=== PATIENT | female | born 1985 | race Caucasian/White ===

== ENCOUNTER 2021-10-30 08:50 | Emergency (ER) | payer SELFPAY ==
[~2021-10-30] VITALS: Ht 152.4 cm; Wt 54.5 kg
[2021-10-30 08:58] VITALS: BP 130/75
[2021-10-30] MEDS ORDERED: ALPR2TAB3 PO (09:03)
[2021-10-30] MEDS ORDERED: ALPR1TAB3 PO (09:36)
== END 2021-10-30 09:50 | disposition home or self-care (01) ==
LOC: M ED 08:50
DX: Z76.0 Encounter for issue of repeat prescription (principal); F41.8 Other specified anxiety disorders; F33.9 Major depressive disorder, recurrent, unspecified

== ENCOUNTER 2021-10-31 03:31 | Emergency (ER) | payer SELFPAY ==
[~2021-10-31] VITALS: Ht 152.4 cm; Wt 57.5 kg
[~2021-10-31 03:31] MED LIST: ALPR1TAB3 PO; ALPR2TAB3 PO
[2021-10-31 03:32] VITALS: BP 119/74
== END 2021-10-31 04:36 | disposition left against medical advice (07) ==
LOC: M ED 03:31
DX: Z53.29 Procedure and treatment not carried out because of patient's decision for other reasons (principal)